=== PATIENT | male | born 1950 | race Caucasian/White ===

== ENCOUNTER → 2019-12-10 | Emergency (ER) | payer MEDICARE, OTHER ==
[~2019-12-10] VITALS: Ht 182.9 cm; Wt 111.1 kg
[~2019-12-10] MED LIST: AMIODARONE HCL 150MG 100 ML IV STA; AMIODARONE HCL 360MG 200 ML IV SCH; AMIODARONE HCL 900 MG in DEXTROSE 5% 500ML 500 ML IV STA; CALCIUM GLUCONATE 10% INJ 0.465 MEQ/ML VIAL ONE; CALCIUM GLUCONATE 10% INJ 4.65 MEQ in SODIUM CHLORIDE 0.9% 50ML 50 ML IV ONE; CEFTRIAXONE SOD 1 GM/NS 50 ML 50 ML IV ONE; DEXTROSE 50% SYRINGE 50 ML IV STA; DILTIAZEM HCL 5 MG/ML 5 ML VIAL IV STA; DILTIAZEM HCL VIAL 5 ML ONE; INSULIN REGULAR, HUMAN 100 UNIT/1 ML 3ML VIAL IV ONE; SOD POLYSTYRENE SULFONATE SUSP 15 GM/60 ML BTL PO ONE; SODIUM BICARBONATE 8.4% INJ 50 ML SYR IV STA; SODIUM BICARBONATE 8.4% SYRING 50 ML ONE; SODIUM CHLORIDE 0.9% 100 ML ONE; VANCOMYCIN 1GM/NS 250 ML 250 ML IV STA
--- NOTE | 2019-12-10 04:19 | NUR ---
Cardizem 10mg given ivp.
[2019-12-10 04:39] LABS: BASOPHILS % 0.2 % (0.0-1.0); HEMATOCRIT 50.8 % (38.2-49.6); HEMOGLOBIN 16.8 g/dL (14.0-18.0); LYMPHOCYTES # (AUTO) 0.6 (1.0-3.2); LYMPHOCYTES % 4.6 % (18.0-39.1); MEAN CORPUSCULAR HEMOGLOBIN 30.8 pg (28-32); MEAN CORPUSCULAR HGB CONC 33.1 g/dL (31-35); MEAN CORPUSCULAR VOLUME 93.2 fL (81-99); MONOCYTES # (AUTO) 0.9 (0.2-0.8); MONOCYTES % 7.6 % (4.4-11.3); NEUTROPHILS # (AUTO) 10.7 (2.1-6.9); NEUTROPHILS % 87.3 % (38.7-80.0); PLATELET COUNT 65 x10e3/uL (140-360); RED BLOOD COUNT 5.45 x10e6/uL (4.3-5.7); RED CELL DISTRIBUTION WIDTH 17.1 % (11.7-14.4)
--- NOTE | 2019-12-10 04:40 | Emergency Department Note ---
History of Present Illnes History of Present Illness Chief Complaint: General Medicine Complaints History of Present Illness This is a 69 year old male arrived to the ED With b/l pedal edema and generalized malaise burn to the ED at the insistence of his daughter. Patient states he never been to the hospital, denies being on Lasix.. Historian: Patient, Business Services Director/EMS Arrival Mode: [facility] SENIOR PROJECT CONTROLS SPECIALIST: See EMS Report Onset (how long ago): day(s) Radiation: Reports non-radiation Severity: moderate Duration (how long): day(s) Timing of current episode: constant Progression: worsening Chronicity: new Context: Denies recent illness Relieving factors: none Past Medical/Family History Physician Review I have reviewed the patient's past medical and family history. Any updates have been documented here. Past Medical History Recent Fever: No Clinical Suspicion of Infectio: No New/Unexplained Change in Ment: Yes Past Medical History: Hypertension, Diabetes, COPD, CHF Past Surgical History: None Social History Smoking Cessation: Former smoker Counseling Performed: Yes Alcohol Use: None Any Illegal Drug Use: No Physically hurt or threatened: No Other Any Pre-Existing Lines (PICC,: No Review of Systems Review of Systems Constitutional: Reports as per HPI, Reports malaise, Reports weakness EENTM: Reports no symptoms Cardiovascular: Reports no symptoms Respiratory: Reports as per HPI Gastrointestinal: Reports no symptoms Genitourinary: Reports no symptoms Musculoskeletal: Reports no symptoms Integumentary: Reports no symptoms Neurological: Reports no symptoms Psychological: Reports no symptoms Endocrine: Reports no symptoms Hematological/Lymphatic: Reports no symptoms Physical Exam Related Data Triage Vital Signs Vital Signs Date Time Temp Pulse Resp B/P (MAP) Pulse Ox O2 Delivery O2 Flow Rate FiO2 12/10/19 04:15 98.1 155 26 109/73 96 Room Air 12/10/19 04:33 2.0 Vital signs reviewed: Yes Physical Exam CONSTITUTIONAL Constitutional: Present well-developed, Present well-nourished, Present obese, Present ill appearing HENT HENT: Present normocephalic, Present atraumatic, Present oropharynx clear/moist, Present nose normal HENT L/R: Present left ext ear normal, Present right ext ear normal EYES Eyes: Reports PERRL, Reports conjunctivae normal NECK Neck: Present ROM normal PULMONARY Pulmonary: Present effort normal, Present breath sounds normal CARDIOVASCULAR Cardiovascular: Present regular rhythm, Present irregular rhythm, Present capillary refill normal, Present tachycardia GASTROINTESTINAL Abdominal: Present soft, Present nontender, Present bowel sounds normal, Present distension GENITOURINARY Genitourinary: Present exam deferred SKIN Skin: Present warm, Present dry MUSCULOSKELETAL Musculoskeletal: Present edema NEUROLOGICAL Neurological: Present alert, Present oriented x 3, Present no gross motor or sensory deficits PSYCHOLOGICAL Psychological: Present mood/affect normal, Present judgement normal Results Laboratory Laboratory Laboratory Tests Test 12/10/19 04:16 Lab results reviewed: Yes Laboratory comments Laboratory Tests Test 12/10/19 05:13 12/10/19 04:16 White Blood Count 12.31 x10e3/uL (4.8-10.8) Red Blood Count 5.45 x10e6/uL (4.3-5.7) Hemoglobin 16.8 g/dL (14.0-18.0) Hematocrit 50.8 % (38.2-49.6) Mean Corpuscular Volume 93.2 fL (81-99) Mean Corpuscular Hemoglobin 30.8 pg (28-32) Mean Corpuscular Hemoglobin Concent 33.1 g/dL (31-35) Red Cell Distribution Width 17.1 % (11.7-14.4) Platelet Count 65 x10e3/uL (140-360) Neutrophils (%) (Auto) 87.3 % (38.7-80.0) Lymphocytes (%) (Auto) 4.6 % (18.0-39.1) Monocytes (%) (Auto) 7.6 % (4.4-11.3) Eosinophils (%) (Auto) 0.0 % (0.0-6.0) Basophils (%) (Auto) 0.2 % (0.0-1.0) Neutrophils # (Auto) 10.7 (2.1-6.9) Lymphocytes # (Auto) 0.6 (1.0-3.2) Monocytes # (Auto) 0.9 (0.2-0.8) Eosinophils # (Auto) 0.0 (0.0-0.4) Basophils # (Auto) 0.0 (0.0-0.1) Absolute Immature Granulocyte (auto 0.04 x10e3/uL (0-0.1) Sodium Level 128 mmol/L (136-145) Potassium Level 7.2 mmol/L (3.5-5.1) Chloride Level 94 mmol/L (98-107) Carbon Dioxide Level 18 mmol/L (22-29) Anion Gap 23.2 mmol/L (8-16) Blood Urea Nitrogen 76 mg/dL (7-26) Creatinine 2.09 mg/dL (0.72-1.25) Estimat Glomerular Filtration Rate 32 ML/MIN (60-) BUN/Creatinine Ratio 36 (6-25) Glucose Level 187 mg/dL (74-118) Calcium Level 8.1 mg/dL (8.4-10.2) Total Bilirubin 4.7 mg/dL (0.2-1.2) Aspartate Amino Transf (AST/SGOT) 106 IU/L (5-34) Alanine Aminotransferase (ALT/SGPT) 304 IU/L (0-55) Alkaline Phosphatase 134 IU/L (40-150) Creatine Kinase 149 IU/L (30-200) Creatine Kinase MB 9.20 ng/mL (0-5.0) Troponin I 0.075 ng/mL (0-0.300) B-Type Natriuretic Peptide 966.0 pg/mL (0-100) Total Protein 6.8 g/dL (6.5-8.1) Albumin 2.8 g/dL (3.5-5.0) Globulin 4.0 g/dL (2.3-3.5) Albumin/Globulin Ratio 0.7 (0.8-2.0) Imaging Imaging results reviewed: Yes Procedures 12 Lead ECG Interpretation ECG Interpretation : ECG: ECG 1 Environmental Services Assistant: Interpreted by ED physician Rhythm: atrial fibrillation Rate: tachycardia QRS axis: left ST segments normal: Yes T waves normal: Yes Clinical Impression: abnormal ECG Critical Care Time Total Critical Care Time (min): 85 Critical care time exclusive o: separately billable procedures Critcal care necessary due to: cardiac failure, sepsis Assessment & Plan Medical Decision Making MDM 69-year-old male arrives to the ED extensive past medical history. Patient with complaints of pedal edema worsening shortness of breath and generalized malaise. On arrival to the ED patient noted to be in atrial fibrillation with RVR and mildly hypotensive. Patient's heart rate improved with Cardizem. Lab work revealed marked abnormalities including hyperbilirubinemia, acute renal failure as well as deranged LFTs. Patient with an elevated BNP. Patient with marked hyperkalemia. Hyperkalemia treated with D50, insulin, calcium gluconate and bicarb Given patient's elevated bilirubin with new renal failure there were concerns of possible sepsis noted at time 0530- patient covered broad-spectrum antibiotics Blood cultures and lactic acid drawn Patient tachypnea can fluid overloaded, given low blood pressure patient was placed on BiPAP at 5:30 AM Patient required transfer to [facility] for higher level of care given the need for IMCU/ICU bed. Assessment & Plan Final Impression: (1) Severe sepsis (2) Acute renal failure (3) CHF exacerbation (4) Hyperkalemia (5) Transaminitis Depart Disposition: TRANS TO OTHER [facility] Last Vital Signs Date Time Temp Pulse Resp B/P (MAP) Pulse Ox O2 Delivery O2 Flow Rate FiO2 12/10/19 04:33 118 28 90/67 100 Nasal Cannula 2.0 12/10/19 04:15 98.1 Medications in the ED Diltiazem HCl 5 ml @ ud STK-MED ONCE .ROUTE ; Start 12/10/19 at 04:19; Stop 12/10/19 at 04:13; Status DC Diltiazem HCl 10 mg NOW STAT IV Last administered on 12/10/19at 04:19; Admin Dose 10 MG; Start 12/10/19 at 04:28; Stop 12/10/19 at 04:32; Status DC MASTER AC DO Dec 10, 2019 04:40
--- NOTE | 2019-12-10 04:44 | NUR ---
CHEST X-RAY PERFORMED
[2019-12-10 04:59] LABS: ALBUMIN 2.8 g/dL (3.5-5.0); ALBUMIN/GLOBULIN RATIO 0.7 (0.8-2.0); ANION GAP 23.2 mmol/L (8-16); CALCIUM 8.1 mg/dL (8.4-10.2); CREATININE, SERUM 2.09 mg/dL (0.72-1.25)
[2019-12-10 05:04] LABS: POTASSIUM 7.2 mmol/L (3.5-5.1)
[2019-12-10 05:07] LABS: CREATINE KINASE MB 9.2 ng/mL (0-5.0)
[2019-12-10 05:45] LABS: ABG PCO2 39 mmHg (35-45); ABG PH 7.49 (7.35-7.45); ABG PO2 127 mmHg (80-105)
[2019-12-10 05:46] LABS: ABG HCO3 30 mmol/L (22-26); ABG TCO2 31
--- NOTE | 2019-12-10 05:59 | NUR ---
RT AT BEDSIDE FOR BIPAP PLACEMENT.
--- NOTE | 2019-12-10 06:15 | NUR ---
Amiodarone 150mg bolus infusion initiated.
--- NOTE | 2019-12-10 06:16 | NUR ---
Pt on Bipap, HR irregular, A-fib with RVR, pvc's, with runs of V-tac.
--- NOTE | 2019-12-10 06:25 | Diagnostic Imaging Report ---
EXAMINATION: CHEST SINGLE (PORTABLE) INDICATION: CHF COMPARISON: None FINDINGS: TUBES and LINES: None. LUNGS/PLEURA: Normal lung volumes. Right mid/lower lung haziness. Subtle left lower lung haziness. No pneumothorax. HEART AND MEDIASTINUM: Cardiac size is mildly enlarged. BONES AND SOFT TISSUES: No acute osseous lesion. Soft tissues are unremarkable. UPPER ABDOMEN: No free air under the diaphragm. IMPRESSION: Right mid/lower lung haziness can be due to atelectasis pneumonia or pleural effusion. A small left pleural effusion is also possible. Lung evaluation limited due to portable technique and patient body habitus. Mild cardiomegaly and pulmonary vascular congestion. Signed by: Francisco Anthony DO on 12/10/2019 6:22 AM
== END | disposition other institution (70) ==
LOC: ER 04:13
DX: A41.9 Sepsis, unspecified organism (principal); N17.9 Acute kidney failure, unspecified; I50.9 Heart failure, unspecified; R74.0 Nonspecific elevation of levels of transaminase and lactic acid dehydrogenase [LDH]; E87.5 Hyperkalemia; I10 Essential (primary) hypertension; E11.9 Type 2 diabetes mellitus without complications; J44.9 Chronic obstructive pulmonary disease, unspecified; Z87.891 Personal history of nicotine dependence
CPT/HCPCS: 36415; 36600; 71045; 80053; 82550; 82553; 82805; 83605; 83880; 84484; 85025; 87040; 93005; 94660; 99285; J0610; J0696; J1817; J3370; J7050; J7799; J7060